=== PATIENT | female | born 1990 | race Two or more races ===

== ENCOUNTER 2022-11-20 11:57 | Emergency (ER) | payer SELFPAY ==
[2022-11-20 12:27] LABS: Pregnancy Test - Urine (BHCG) Negative (Negative); Specific Gravity 1.021 (1.002-1.036)
[2022-11-20 12:28] LABS: Pregu Control Background? CLEAR/WHITE (CLR/WHITE); Pregu Control Bar Appear? YES (CONTROL BAR)
[2022-11-20] MEDS ORDERED: Ondansetron PF 4 MG/2 ML Vial ONE (12:51)
[2022-11-20] MEDS ORDERED: Lactated Ringer's 1,000 ML ONE (12:51)
[2022-11-20] MEDS ORDERED: Ketorolac Tromethamine 30 MG/ML VIAL ONE (12:51)
[2022-11-20 12:57] LABS: #Basophils 0.1 thou/uL (0.0-0.2); #Lymphocytes 0.7 thou/uL (1.20-3.40); #Monocytes 0.5 thou/uL (0.11-0.59); #Neutrophils 8.8 thou/uL (1.40-6.50); %Basophils 1.3 % (0.0-1.0); %Eosinophils 0.1 % (0.0-10.0); %Lymphocytes 6.9 % (21.0-51.0); %Monocytes 4.9 % (0.0-10.0); %Neutrophils 86.8 % (42.0-75.0); Mean Corpuscular HGB CONC 31.5 g/dL (32.0-36.0); Mean Corpuscular Hemoglobin 26.5 pg (27.0-31.0); Mean Corpuscular Volume 84.2 fl (78.0-98.0); Mean Platelet Volume 12.3 fL (7.4-10.4); Platelet Count 166 10x3/uL (130-400); RBC Distribution Width 14.9 % (11.5-14.5); Red Blood Cell (RBC) Count 4.14 mill/uL (4.20-5.40); White Blood Cell (WBC) Count 10.1 10x3/uL (4.8-10.8)
[2022-11-20 13:02] LABS: Bilirubin Negative (Negative); Blood, Urine Moderate (Negative); Clarity Clear (Clear); Glucose, Urine (Dipstick) Negative (Negative); Ketone, Urine Trace mg/dL (Negative); Leukocyte Negative (Negative); Nitrite Negative (Negative); Protein, Urine (Dipstick) Negative (Neg-Trace); Specific Gravity, Urine 1.025 (1.005-1.030); Urobilinogen 0.2 mg/dL (Less than 2)
[2022-11-20 13:09] LABS: ALT (SGPT) 13 U/L (8-55); AST (SGOT) 18 U/L (5-34); Albumin 4.1 g/dL (3.5-5.0); Alkaline Phosphatase 46 U/L (40-110); Anion Gap 16 mmol/L (10-20); BUN (Urea Nitrogen) 10 mg/dL (7.0-18.7); Bilirubin, Total 0.4 mg/dL (0.2-1.2); Calc. Creatinine Clearance 0 mL/min (70-130); Calcium 9.2 mg/dL (7.8-10.44); Carbon Dioxide 18 mmol/L (22-29); Chloride 107 mmol/L (98-107); Estimated GFR 119; Globulin 3.1 g/dL (2.4-3.5); Glucose 106 mg/dL (70-105); Lipase 31 U/L (8-78); Potassium 3.6 mmol/L (3.5-5.1); Protein, Total 7.2 g/dL (6.0-8.3); Sodium 137 mmol/L (136-145)
[2022-11-20 13:11] LABS: Bacteria/HPF Rare-Few HPF (None Seen); CAUTI Indications for Culture Dysuria,urgency,freq; Mucous/LPF Few LPF (<2+); Squamous Epithelial 0-3 HPF (0-3); Urine Culture Reflex No No; WBC/HPF None Seen HPF (0-3)
[2022-11-21 02:51] LABS: Chlamydia by PCR, Vaginal Swab Not Detected (NotDetected); GC by PCR, Vaginal Swab Not Detected (NotDetected)
== END 2022-11-20 14:20 | disposition home or self-care (01) ==
LOC: MADERS 11:57
DX: N94.6 Dysmenorrhea, unspecified (principal)
CPT/HCPCS: 74177; 80053; 81001; 81025; 83605; 83690; 85025; 87480; 87491; 87510; 87591; 87660; 96361; 96374; 96375; J1885; J2405; J7120

== ENCOUNTER 2024-03-12 04:44 | Emergency (ER) | payer OTHER ==
[2024-03-12] MEDS ORDERED: Ondansetron ODT 4 MG TAB ONE (05:02)
== END 2024-03-12 06:08 | disposition home or self-care (01) ==
LOC: MADERS 04:44
DX: O21.9 Vomiting of pregnancy, unspecified (principal); O99.892 Other specified diseases and conditions complicating childbirth; R19.7 Diarrhea, unspecified; Z3A.22 22 weeks gestation of pregnancy
CPT/HCPCS: 99283; Q0162